=== PATIENT | female | born 2000 | race Caucasian/White ===

== ENCOUNTER 2021-07-21 07:33 | Outpatient (CLI) | payer OTHER ==
[2021-07-21] MEDS ORDERED: Fentanyl 100 MCG/2 ML VIAL ONE (10:32)
== END 2021-07-21 07:34 | disposition home or self-care (01) ==
LOC: CSHCT 07:33
PROVIDERS: ATTEND Physician Assistant
DX: R10.30 Lower abdominal pain, unspecified (principal); K59.00 Constipation, unspecified
CPT/HCPCS: 74177; J3010

== ENCOUNTER 2022-03-31 13:23 | Emergency (ER) | payer OTHER ==
[2022-03-31] MEDS ORDERED: Ondansetron PF 4 MG/2 ML Vial ONE (14:01)
== END 2022-03-31 15:24 | disposition home or self-care (01) ==
LOC: CSHERS 13:23
DX: T43.611A Poisoning by caffeine, accidental (unintentional), initial encounter (principal); E16.2 Hypoglycemia, unspecified
CPT/HCPCS: 96361; 96374; J2405